=== PATIENT | female | born 1965 | race Caucasian/White ===

== ENCOUNTER → 2016-12-28 | Outpatient (CLI) | payer OTHER ==
[~2016-12-28] MED LIST: PRINIVIL20 M1 PO; VIIBRYD40 MG PO; VYBRID; ZOCOR10 MG PO
--- NOTE | ~2016-12-28 | CR63 ---
[facility] A Service of [facility] & [facility] RADIOLOGY TEXT RESULTS PATIENT: HERMINIO CHAPA LOCATION: [facility] : 67 UNIT #: [id number] AGE: [address]: Jonathan Angulo III, MD SEX: F ORDER DR: [id number] [facility] [address] [place], [place] [address] [id number] O MR#: [id number] Acc #: [id number] NAME: HERMINIO CHAPA : 1965 SEX: F STUDY DATE/TIME: 12/28/2016 8:26 UNIT: [facility] ROOM: STUDY DESCRIPTION: CR Chest 2 View Attending Physician: Jonathan Angulo III, M.D. Referring Physician: Jonathan Angulo III, M.D. Ordering Physician: Jonathan Angulo III, M.D. Primary Care Physician: Nicki Fraser M.D. MEDICAL IMAGING REPORT This report is preliminary unless electronic signature is present EXAM Two view chest, 12/28/2016. HISTORY A 51-year-old woman, preop clearance for laparoscopic adjustable gastric band placement and possible paraesophageal hernia repair. Patient short of air with activity. COMPARISON STUDIES None FINDINGS PA and lateral chest views demonstrate normal cardiac size and configuration. Hilar structures and mediastinal contours are preserved. Bilateral lungs are expanded and clear. Large body habitus noted. IMPRESSION No acute chest finding. Dictated by... Jorge Hector M.D. THIS IS AN ELECTRONICALLY VERIFIED REPORT Jorge Hector M.D. at 12/28/2016 12:25 PM ULISSES/nereyda TD: 12/28/2016 12:13 JOB #: [id number] MEDICAL IMAGING REPORT Page 1 of 1 COPY
--- NOTE | ~2016-12-28 | EKG ---
PATIENT: HERMINIO CHAPA UNIT #: [id number] Ventricular Rate: 79 BPM Atrial Rate: 79 BPM P-R Interval: 148 ms QRS Duration: 84 ms Q-T Interval: 368 ms QTC Calculation(Bezet): 421 ms P Chauncey: 17 degrees Calculated R Chauncey: -11 degrees Calculated T Chauncey: 19 degrees Diagnosis Line: Normal sinus rhythm Diagnosis Line: Moderate voltage criteria for LVH, may be normal Diagnosis Line: variant Diagnosis Line: Borderline ECG Diagnosis Line: No previous ECGs available Diagnosis Line: Confirmed by BALJEET ARTIS MD ([id number]) on Diagnosis Line: 12/28/2016 10:54:45 AM INTERPRETING MD: STEFF CRAIG
--- NOTE | ~2016-12-28 | CR97 ---
[facility] A Service of [facility] & [facility] RADIOLOGY TEXT RESULTS PATIENT: HERMINIO CHAPA LOCATION: [facility] : 67 UNIT #: [id number] AGE: [address]: Jonathan Angulo III, MD SEX: F ORDER DR: [id number] [facility] [address] [place], [place] [address] [id number] O MR#: [id number] Acc #: [id number] NAME: HERMINIO CHAPA : 1965 SEX: F STUDY DATE/TIME: 12/28/2016 9:03 UNIT: [facility] ROOM: STUDY DESCRIPTION: CR Esophagram Attending Physician: Jonathan Angulo III, M.D. Referring Physician: Jonathan Angulo III, M.D. Ordering Physician: Jonathan Angulo III, M.D. Primary Care Physician: Nicki Fraser M.D. MEDICAL IMAGING REPORT This report is preliminary unless electronic signature is present EXAM Barium esophagram INDICATION Morbid obesity. Preop for LAP-band surgery. No comparisons. FINDINGS Mild tertiary contractions. Small sliding hiatal hernia. The study is otherwise unremarkable. IMPRESSION Small sliding hiatal hernia otherwise unremarkable Dictated by... Dwayne Briseno M.D. THIS IS AN ELECTRONICALLY VERIFIED REPORT Dwayne Briseno M.D. at 01/02/2017 11:21 AM SHAYY/mickie TD: 12/29/2016 00:53 JOB #: [id number] MEDICAL IMAGING REPORT Page 1 of 1 COPY
[2016-12-28 09:39] LABS: HEMATOCRIT 41.8 % (35.0-45.0); HEMOGLOBIN 14.3 gm/dL (12.0-16.0); MEAN CORPUSCULAR HEMOGLOBIN 30.8 PG (28-34); MEAN CORPUSCULAR HGB CONC 34.2 g/dL (30-36); MEAN PLATELET VOLUME 8.8 FL (6.5-11.5); RED BLOOD COUNT 4.65 X10e (3.90-5.30); RED CELL DISTRIBUTION WIDTH 13.9 % (11.0-15.5); WHITE BLOOD COUNT 6.8 X10e3 (4.0-10.5)
[2016-12-28 10:38] LABS: BILIRUBIN,TOTAL 0.8 mg/dL (0.2-2.0); BUN/CREATININE RATIO 13.75; CALCIUM SERUM 9.4 mg/dL (8.4-10.2); CREATININE SERUM 0.8 mg/dL (0.6-1.4); POTASSIUM 4.4 mmol/L (3.5-5.1); PROTEIN TOTAL SERUM 6.8 g/dL (6.0-8.3)
== END | disposition home or self-care (01) ==
LOC: CRAD 08:18 → CAMB 10:00
PROVIDERS: Surgery
DX: Z01.818 Encounter for other preprocedural examination (principal); E66.01 Morbid (severe) obesity due to excess calories; K44.9 Diaphragmatic hernia without obstruction or gangrene
CPT/HCPCS: 36415; 71020; 74220; 80053; 80061; 84443; 85027; 93005

== ENCOUNTER → 2017-01-09 | Day surgery (SDC) | payer OTHER ==
--- NOTE | ~2017-01-09 | CR7 ---
[facility] A Service of [facility] RADIOLOGY TEXT RESULTS PATIENT: HERMINIO CHAPA LOCATION: [facility] : 67 UNIT #: [id number] AGE: [address]: Jonathan Angulo III, MD SEX: F ORDER DR: [id number] [facility] [address] [place], [place] [address] [id number] O MR#: [id number] Acc #: [id number] NAME: HERMINIO CHAPA : 1965 SEX: F STUDY DATE/TIME: 01/09/2017 8:54 UNIT: [facility] ROOM: STUDY DESCRIPTION: CR Abdomen Single AP View Attending Physician: Jonathan Angulo III, M.D. Ordering Physician: Jonathan Angulo III, M.D. Primary Care Physician: Nicki Fraser M.D. MEDICAL IMAGING REPORT This report is preliminary unless electronic signature is present EXAMINATION AP abdomen. DATE 01/09/2017 HISTORY Postop laparoscopic gastric band placement today. Morbid obesity. COMPARISON None. FINDINGS Gastric band device is located at the level of the esophagogastric junction with the phi angle approximating 70.5 degrees. The insufflation port is located within the left lower quadrant of the abdomen and the connector tubing appears contiguous. No gross free intraperitoneal air is identified. No abnormal large or small bowel dilation is seen. Minimal linear scarring or subsegmental atelectasis is present in the left base. Mild marginal osteophyte formation is seen within the lumbar spine. IMPRESSION Gastric band device appears satisfactorily positioned. Phi angle approximates 70.5 degrees. No acute findings. Dictated by... Yarely Powers M.D. THIS IS AN ELECTRONICALLY VERIFIED REPORT Yarely Powers M.D. at 01/10/2017 9:39 AM [facility]/pc [facility] A Service of [facility] RADIOLOGY TEXT RESULTS PATIENT: HERMINIO CHAPA LOCATION: [facility] : 67 UNIT #: [id number] AGE: [address]: Jonathan Angulo III, MD SEX: F ORDER DR: TD: 01/09/2017 12:05 JOB #: [id number] MEDICAL IMAGING REPORT Page 1 of 1 COPY
--- NOTE | ~2017-01-09 | OR ---
Unit #: [id number] #: [id number] Patient: HERMINIO CHAPA [id number] [facility] [address]. [place], [place] [address] [id number] O MR#: [id number] NAME: HERMINIO CHAPA ROOM: Date of Procedure: 01/09/2017 Admission Date: 01/09/2017 Surgeon: Jonathan Angulo III, M.D. : 1965 Attending Physician: Jonathan Angulo III, M.D. Primary Care Physician: Nicki Fraser M.D. OPERATIVE REPORT JOB NOTE: VERIFY CC PREOPERATIVE DIAGNOSIS Chronic morbid obesity. POSTOPERATIVE DIAGNOSIS Chronic morbid obesity. SECONDARY DIAGNOSES Anterior paraesophageal hernia. PROCEDURES PERFORMED Laparoscopic adjustable gastric banding (AP standard with low-profile port) and laparoscopic paraesophageal hernia repair. SUPERVISOR [employer] Dr. Kieran Treviño. SPECIMENS None. COMPLICATIONS None apparent. ESTIMATED BLOOD LOSS Minimal. ANESTHESIA General endotracheal tube anesthesia. INDICATIONS FOR PROCEDURE This is a 51-year-old lady, who has chronic morbid obesity with a BMI of 43 and associated comorbidities of hypertension. She has been through the bariatric program at [facility] and understands the risks and benefits of the procedure. DESCRIPTION OF PROCEDURE After consent was obtained, including the risks and benefits of slippage, erosion, port dysfunction, and possible failure of weight loss due to noncompliance, the patient was taken to the operating room and placed in the supine position. General anesthetic was administered and the abdomen was prepped and draped in standard surgical fashion. Unit #: [id number] #: [id number] Patient: HERMINIO CHAPA I began by making a 2 cm incision just above and to the left of the umbilicus. I used a Visiport to enter the peritoneal cavity without any difficulty. C02 pneumoperitoneum was then established. Next, I placed a 5 mm port in the right upper quadrant, a 5 mm Lisette liver retractor in the subxiphoid region to provide exposure of the gastroesophageal junction. Next, a 10 mm port was placed in the left upper quadrant and a 5 mm port was placed in the left lateral subcostal region. I began by performing an examination of the GE junction to evaluate for a hiatal hernia. We then scored the peritoneal attachments overlying the angle of His. I then opened up the clear space in the gastrohepatic ligament, and then using 2 blunt graspers, I identified the small fat pad crossing over the right crura. I swept the fat anterior to the crura off the crura and using the pars flaccida, I created a retrogastric tunnel where the blunt grasper exited at the angle of His. Once I had made this tunnel safely, I then inserted an Allergan AP band into the abdominal cavity. This adjustable gastric band was then place around the upper part of the stomach and fastened and buckled anteriorly. We then tacked the lateral fundus over the band to the proximal pouch with 2 interrupted 0 Ethibond sutures. I then used a third stitch to imbricate the excess anterior stomach by going from the lesser curvature up towards where the last stitch was placed. We then had excellent hemostasis. I removed the Lisette liver retractor. We then removed the port tubing through the initial port incision. The rest of the ports were removed, and the pneumoperitoneum was released. I then left a small tail on the tubing. We then attached the port to the excess band tubing. We placed a piece of Prolene mesh along the back side of the port and used a Prolene stitch to anchor this mesh in place. We then trimmed the excess mesh so that just a small footprint of mesh was in place behind the port. I then inserted the tubing back into the abdominal cavity, and we placed the port into a small pocket that was made just inferior to where our initial port incision was made. The mesh was in direct contact with the fascia, and this will scar in place to hold the port in place. We then injected all the port sites with 0.25% plain Marcaine, and I reapproximated the skin edges with interrupted 4-0 Vicryl subcuticular sutures. Steri-strips were then applied. The patient tolerated the procedure without any problems and returned to the recovery room in stable condition. ADDENDUM After exposure of the GE junction, the patient was noted to have a small to medium size anterior paraesophageal hernia. I scored the phrenoesophageal ligament, reduced the hernia defect and after identifying both the right and left crura, I reapproximated the defect with an interrupted 0 Ethibond [id number] suture. I then proceeded with the case as listed above. Dictated by... Jonathan Angulo III, M.D. VCL/hugo TD: 01/10/2017 12:33 JOB #: [id number] Unit #: [id number] #: [id number] Patient: HERMINIO CHAPA OPERATIVE REPORT Page 1 of 1 X Jonathan Angulo III, MD PROCEDURE OPERATIVE NOTE
== END | disposition home or self-care (01) ==
LOC: CSUR 06:09
DX: E66.01 Morbid (severe) obesity due to excess calories (principal); K44.9 Diaphragmatic hernia without obstruction or gangrene; I10 Essential (primary) hypertension; M19.90 Unspecified osteoarthritis, unspecified site; E78.5 Hyperlipidemia, unspecified; Z68.41 Body mass index [BMI] 40.0-44.9, adult; Z79.899 Other long term (current) drug therapy
CPT/HCPCS: 74000; 84703; C1781; J0330; J0461; J0690; J1650; J1885; J2250; J2405; J2710; J3010